=== PATIENT | male | born 1995 | race Caucasian/White ===

== ENCOUNTER 2018-11-24 16:25 | Emergency (ER) | payer OTHER ==
[~2018-11-24] VITALS: Ht 180.3 cm; Wt 81.8 kg
[2018-11-24 16:42] VITALS: BP 133/74; TEMP 98.8
[2018-11-24 19:00] VITALS: PULSE 90
== END 2018-11-24 19:00 | disposition home or self-care (01) ==
LOC: COL.ER 16:25
DX: M25.561 Pain in right knee (principal); W17.89XA Other fall from one level to another, initial encounter; Y92.009 Unspecified place in unspecified non-institutional (private) residence as the place of occurrence of the external cause